=== PATIENT | male | born 1995 | race Hispanic/Latino ===

== ENCOUNTER 2017-04-15 15:33 | Day surgery (SDC) | payer OTHER ==
[2017-04-15] MEDS ORDERED: LORazepam 2 MG/ML MDV IVPUSH ONE (15:44)
[2017-04-15] MEDS ORDERED: Morphine 4 MG/ML Syringe IVPUSH ONE ×2 (15:45)
[2017-04-15] MEDS ORDERED: Ondansetron 4 MG/2 ML SDV IVPUSH ONE (15:45)
[2017-04-15] MEDS ORDERED: Sodium Chloride 0.9% 1,000 ML IV SCH (15:45)
[2017-04-15] MEDS ORDERED: LORazepam 2 MG/ML MDV ONE (15:47)
--- NOTE | 2017-04-15 16:27 | CR ---
EXAMINATION: Left forearm HISTORY: Laceration COMPARISON: None TECHNIQUE: 2 views FINDINGS/IMPRESSION: There is a subcutaneous laceration overlying the ulnar aspect of the distal for earm. Otherwise no acute osseous abnormality, dislocation, or fracture identified. No mineralization and joint spaces are otherwise normal.
[2017-04-15] MEDS ORDERED: Lidocaine 1% 20 ML MDV INJECT ONE (16:28)
[2017-04-15] MEDS ORDERED: Bupivacaine 0.25% 10 ML SDV INJECT ONE (16:28)
--- NOTE | 2017-04-15 16:29 | EDM.PDOC ---
ED HPI GENERAL MEDICAL PROBLEM - General Chief Complaint: Laceration Stated Complaint: CUT ON FOREARM Time Seen by Provider: 04/15/17 15:57 Source of Information: Reports: Patient History Limitations: Reports: No Limitations - History of Present Illness INITIAL COMMENTS - FREE TEXT/NARRATIVE: History of present illness: []Patient cut his left distal forearm with a saw with profuse bleeding 5 minutes prior to arrival. Patient complains of numbness in his ring and small finger. He denies any other injuries. Patient is up-to-date with immunizations. Review of systems: As per history of present illness and below otherwise all systems reviewed and negative. Past medical history: As per history of present illness and as reviewed below otherwise noncontributory. Surgical history: As per history of present illness and as reviewed below otherwise noncontributory. Social history: No reported history of drug or alcohol abuse. Family history: As per history of present illness and as reviewed below otherwise noncontributory. Physical exam: General: Well developed, well nourished in NAD HEENT: Atraumatic, normocephalic, pupils reactive, negative for conjunctival pallor or scleral icterus, mucous membranes moist, throat clear, neck supple, nontender, trachea midline. Lungs: Clear to auscultation, breath sounds equal bilaterally, chest nontender. Heart: S1S2, regular, negative for clicks, rubs, or JVD. Abdomen: Soft, nondistended, nontender. Negative for masses or hepatosplenomegaly. Negative for costovertebral tenderness. Pelvis: Stable nontender. Genitourinary: Deferred. Rectal: Deferred. Extremities: Left distal forearm ulnar side with a 4 cm deep laceration with active bleeding, he is able to flex and extend his ring and small finger, he has decreased sensation in the ring and small finger, there is brisk capillary refill distally. Neuro: Awake, alert, oriented. Cranial nerves II through XII unremarkable. Cerebellum unremarkable. Motor and sensory unremarkable throughout. Exam nonfocal. Diagnostics: []X-ray forearm shows no fracture or other abnormalities. Therapeutics: []Ancef, morphine, Ativan, Dilaudid, IV fluids given in the ED Impression: []Laceration left distal wrist with neurovascular compromise Plan: []Dr. Pabon was consulted after the wound was evaluated and an arterial injury and likely a nerve deficit was noted. Definitive disposition and diagnosis as appropriate pending reevaluation and review of above. Left Arm Pain Score (Numeric/FACES): 10 - Related Data Allergies Allergy/AdvReac Type Severity Reaction Status Date / Time No Known Allergies Allergy Verified 04/15/17 15:46 Home Meds: Home Meds . [No Known Home Meds] 08/21/14 [History] Past Medical History - Past Health History Medical/Surgical History: Denies Medical/Surgical History - Infectious Disease History Infectious Disease History: Reports: None Social & Family History - Family History Family Medical History: Noncontributory - Tobacco Use Smoking Status *Q: Never Smoker Years of Tobacco use: 2 Second Hand Smoke Exposure: No - Caffeine Use Caffeine Use: Reports: Soda - Alcohol Use Days Per Week of Alcohol Use: 0 - Recreational Drug Use Recreational Drug Use: No ED ROS GENERAL - Review of Systems Review Of Systems: See Below (See history of present illness) ED EXAM, SKIN/RASH Exam: See Below (See history of present illness) Course - Vital Signs Last Recorded V/S: Last Vital Signs Temp 35.7 C 04/15/17 15:41 Pulse 83 04/15/17 15:50 Resp 18 04/15/17 15:41 BP 114/89 04/15/17 15:50 Pulse Ox 98 04/15/17 15:50 - Orders/Labs/Meds Orders: Active Orders 24 hr Category Date Time Status Notify Provider Consults [RC] ASDIRECTED Care 04/15/17 16:55 Ordered Consult to Physician [CONS] Stat Cons 04/15/17 16:00 Ordered Sodium Chloride 0.9% [Normal Saline] 1,000 ml Med 04/15/17 15:45 Active IV ASDIRECTED Medication Orders Sodium Chloride (Normal Saline) 1,000 mls @ 999 mls/hr IV ASDIRECTED MAYELIN Last Admin: 04/15/17 16:29 Dose: 999 mls/hr Meds: Medications Generic Name Dose Route Start Last Admin Trade Name Freq PRN Reason Stop Dose Admin Sodium Chloride 1,000 mls @ 999 mls/hr 04/15/17 15:45 04/15/17 16:29 Normal Saline IV 999 mls/hr ASDIRECTED MAYELIN Administration Discontinued Medications Generic Name Dose Route Start Last Admin Trade Name Freq PRN Reason Stop Dose Admin Bupivacaine HCl 10 ml 04/15/17 16:28 04/15/17 16:30 Sensorcaine-Mpf 0.25% INJECT 04/15/17 16:29 10 ml ONETIME ONE Administration Fentanyl Confirm 04/15/17 16:53 Sublimaze Administered 04/15/17 16:54 Dose 250 mcg .ROUTE .STK-MED ONE Cefazolin Sodium/Dextrose 2 gm 50 mls @ 100 mls/hr 04/15/17 16:32 / Premix IV 04/15/17 17:01 ONETIME ONE Lidocaine Confirm 04/15/17 16:53 Xylocaine-Mpf 2% Administered 04/15/17 16:54 Dose 5 ml .ROUTE .STK-MED ONE Lidocaine HCl 20 ml 04/15/17 16:28 04/15/17 16:29 Xylocaine 1% INJECT 04/15/17 16:29 20 ml ONETIME ONE Administration Lorazepam 0.5 mg 04/15/17 15:44 04/15/17 16:28 Ativan IVPUSH 04/15/17 15:45 0.5 mg ONETIME ONE Administration Lorazepam Confirm 04/15/17 15:47 04/15/17 16:29 Ativan Administered 04/15/17 15:48 Not Given Dose 2 mg .ROUTE .STK-MED ONE Midazolam HCl Confirm 04/15/17 16:53 Versed 1 Mg/Ml Administered 04/15/17 16:54 Dose 2 mg .ROUTE .STK-MED ONE Morphine Sulfate 4 mg 04/15/17 15:45 04/15/17 16:28 Morphine IVPUSH 04/15/17 15:46 4 mg ONETIME ONE Administration Morphine Sulfate 4 mg 04/15/17 15:45 04/15/17 16:29 Morphine IVPUSH 04/15/17 15:46 4 mg ONETIME ONE Administration Ondansetron HCl 4 mg 04/15/17 15:45 04/15/17 16:29 Zofran IVPUSH 04/15/17 15:46 4 mg ONETIME ONE Administration Ondansetron HCl Confirm 04/15/17 16:53 Zofran Administered 04/15/17 16:54 Dose 4 mg .ROUTE .STK-MED ONE Propofol Confirm 04/15/17 16:53 Diprivan 20 Ml Administered 04/15/17 16:54 Dose 200 mg .ROUTE .STK-MED ONE Rocuronium Valatie Confirm 04/15/17 16:56 Zemuron Administered 04/15/17 16:57 Dose 50 mg .ROUTE .STK-MED ONE Succinylcholine Chloride Confirm 04/15/17 16:53 Succinylcholine In Ns Pf Administered 04/15/17 16:54 Dose 200 mg .ROUTE .STK-MED ONE Departure - Departure Time of Disposition: 17:03 Disposition: Still A Patient 30 Condition: good Clinical Impression: Laceration of forearm, left, complicated Qualifiers: Encounter type: initial encounter Qualified Code(s): S51.812A - Laceration without foreign body of left forearm, initial encounter - Discharge Information Forms: ED Department Discharge - My Orders Last 24 Hours: My Active Orders 04/15/17 15:45 Sodium Chloride 0.9% [Normal Saline] 1,000 ml IV ASDIRECTED 04/15/17 16:00 Consult to Physician [CONS] Stat 04/15/17 16:55 Notify Provider Consults [RC] ASDIRECTED - Assessment/Plan Last 24 Hours: My Active Orders 04/15/17 15:45 Sodium Chloride 0.9% [Normal Saline] 1,000 ml IV ASDIRECTED 04/15/17 16:00 Consult to Physician [CONS] Stat 04/15/17 16:55 Notify Provider Consults [RC] ASDIRECTED
[2017-04-15] MEDS ORDERED: ceFAZolin 2 GM in Premix Bag 1 BAG IV ONE (16:32)
[2017-04-15] MEDS ORDERED: Succinylcholine/Normal Saline 200 MG/10 ML Syringe ONE (16:53)
[2017-04-15] MEDS ORDERED: Lidocaine 2% 5 ML SDV ONE (16:53)
[2017-04-15] MEDS ORDERED: Ondansetron 4 MG/2 ML SDV ONE (16:53)
[2017-04-15] MEDS ORDERED: Propofol 200 MG/20 ML SDV ONE (16:53)
[2017-04-15] MEDS ORDERED: Midazolam 1 MG/ML 2 ML SDV ONE (16:53)
[2017-04-15] MEDS ORDERED: fentaNYL 250 MCG/5 ML SDV ONE (16:53)
[2017-04-15] MEDS ORDERED: Rocuronium 50 MG/5 ML Vial ONE (16:56)
--- NOTE | 2017-04-15 17:10 | PCM.PREANE ---
Preanesthetic Assessment - Anesthesia/Transfusion/Family Hx Anesthesia History: No Prior Anesthesia Family History of Anesthesia Reaction: Yes (Pt states his mother was undergoing plastic surgery in [place] and "started shaking" (sounds like a seizure) - was tx to hospital and hospitalized for a prolonged time - does not recognize "malignant hyperthermia" and states mother did not get a high fever) - Review of Systems General: No Symptoms Pulmonary: No Symptoms Cardiovascular: No Symptoms Gastrointestinal: No symptoms Neurological: No Symptoms Other: Reports: None - Physical Assessment NPO Status Date: 04/15/17 NPO Status Time: 15:30 O2 Sat by Pulse Oximetry: 98 Respiratory Rate: 18 Vital Signs: Last Vital Signs Temp 96.3 F 04/15/17 15:41 Pulse 83 04/15/17 15:50 Resp 18 04/15/17 15:41 BP 114/89 04/15/17 15:50 Pulse Ox 98 04/15/17 15:50 Height: 5 ft 6.93 in Weight: 170 lb ASA Class: 1E Mental Status: Alert & Oriented x3 Airway Class: Mallampati = 2 Dentition: Reports: Normal Dentition Thyro-Mental Finger Breadths: 4 Mouth Opening Finger Breadths: 3 ROM/Head Extension: Full Lungs: Clear to auscultation, Normal respiratory effort Cardiovascular: Regular Rate, Regular Rhythm - Allergies Allergies/Adverse Reactions: Allergies Allergy/AdvReac Type Severity Reaction Status Date / Time No Known Allergies Allergy Verified 04/15/17 15:46 - Blood Blood Available: No Product(s) Available: None - Anesthesia Plan Free Text/Narrative:: RSI GETA - discussed risk associated with full stomach - need to proceed d/t ulnar artery being cut and risk of bleeding. Pt understands and agrees to proceed. - Acknowledgements Anesthesia Type Planned: General Anesthesia Pt an Appropriate Candidate for the Planned Anesthesia: Yes Alternatives and Risks of Anesthesia Discussed w Pt/Guardian: Yes Pt/Guardian Understands and Agrees with Anesthesia Plan: Yes PreAnesthesia Questionnaire - Past Health History Medical/Surgical History: Denies Medical/Surgical History - Infectious Disease History Infectious Disease History: Reports: None - SUBSTANCE USE Smoking Status *Q: Never Smoker Second Hand Smoke Exposure: No Days Per Week of Alcohol Use: 0 Recreational Drug Use History: No - HOME MEDS Home Medications: Home Meds . [No Known Home Meds] 08/21/14 [History] - CURRENT (IN HOUSE) MEDS Current Meds: Current Medications Sodium Chloride (Normal Saline) 1,000 mls @ 999 mls/hr IV ASDIRECTED MAYELIN Last Admin: 04/15/17 16:29 Dose: 999 mls/hr Discontinued Medications Bupivacaine HCl (Sensorcaine-Mpf 0.25%) 10 ml INJECT ONETIME ONE Stop: 04/15/17 16:29 Last Admin: 04/15/17 16:30 Dose: 10 ml Fentanyl (Sublimaze) Confirm Administered Dose 250 mcg .ROUTE .STK-MED ONE Stop: 04/15/17 16:54 Cefazolin Sodium/Dextrose 2 gm (/ Premix) 50 mls @ 100 mls/hr IV ONETIME ONE Stop: 04/15/17 17:01 Lidocaine (Xylocaine-Mpf 2%) Confirm Administered Dose 5 ml .ROUTE .STK-MED ONE Stop: 04/15/17 16:54 Lidocaine HCl (Xylocaine 1%) 20 ml INJECT ONETIME ONE Stop: 04/15/17 16:29 Last Admin: 04/15/17 16:29 Dose: 20 ml Lorazepam (Ativan) 0.5 mg IVPUSH ONETIME ONE Stop: 04/15/17 15:45 Last Admin: 04/15/17 16:28 Dose: 0.5 mg Lorazepam (Ativan) Confirm Administered Dose 2 mg .ROUTE .STK-MED ONE Stop: 04/15/17 15:48 Last Admin: 04/15/17 16:29 Dose: Not Given Midazolam HCl (Versed 1 Mg/Ml) Confirm Administered Dose 2 mg .ROUTE .STK-MED ONE Stop: 04/15/17 16:54 Morphine Sulfate (Morphine) 4 mg IVPUSH ONETIME ONE Stop: 04/15/17 15:46 Last Admin: 04/15/17 16:28 Dose: 4 mg Morphine Sulfate (Morphine) 4 mg IVPUSH ONETIME ONE Stop: 04/15/17 15:46 Last Admin: 04/15/17 16:29 Dose: 4 mg Ondansetron HCl (Zofran) 4 mg IVPUSH ONETIME ONE Stop: 04/15/17 15:46 Last Admin: 04/15/17 16:29 Dose: 4 mg Ondansetron HCl (Zofran) Confirm Administered Dose 4 mg .ROUTE .STK-MED ONE Stop: 04/15/17 16:54 Propofol (Diprivan 20 Ml) Confirm Administered Dose 200 mg .ROUTE .STK-MED ONE Stop: 04/15/17 16:54 Rocuronium [place] (Zemuron) Confirm Administered Dose 50 mg .ROUTE .STK-MED ONE Stop: 04/15/17 16:57 Succinylcholine Chloride (Succinylcholine In Ns Pf) Confirm Administered Dose 200 mg .ROUTE .STK-MED ONE Stop: 04/15/17 16:54
[2017-04-15] MEDS ORDERED: Bupivacaine 0.25%/EPINEPHrine 1:200,000 10 ML SDV ONE (17:15)
[2017-04-15] MEDS ORDERED: fentaNYL 100 MCG/2 ML SDV IVPUSH PRN (19:00)
--- NOTE | 2017-04-15 19:18 | PCM.POSTAN ---
POST ANESTHESIA ASSESSMENT - MENTAL STATUS Mental Status: alert, oriented - VITAL SIGNS Pulse Rate: 74 SaO2: 98 Resp Rate: 8 Blood Pressure: 112/54 - RESPIRATORY Respiratory Status: respiratory rate WNL, airway patent, O2 saturation stable, supplemental oxygen (per NC) - CARDIOVASCULAR CV Status: pulse rate WNL, blood pressure stable - GASTROINTESTINAL GI Status: no symptoms - PAIN Pain Score: 0 (Pt sleeps between conversations - reports no pain) - POST OP HYDRATION Hydration Status: adequate & stable - OBSERVATIONS Free Text/Narrative:: Pt still pretty sleepy postop - most likely d/t earlier Ativan. VSS. Pt denies any pain or nausea. Pt can awake to voice and answers questions appropriately. Pt stable for discharge to phase II recovery when DEVELOPMENT OFFICER ready.
--- NOTE | 2017-04-15 19:19 | PCM.OPNOTE ---
- General Post-Op/Procedure Note Date of Surgery/Procedure: 04/15/17 Operative Procedure(s): repair of flexor carpi ulnaris partial tendon laceration. exploration of ulnar nerve and artery - intact. Pre Op Diagnosis: wrist laceration with bleeding Post-Op Diagnosis: Same Anesthesia Technique: General ET tube, Local Primary Surgeon: Mery Pabon Complications: None Condition: Good
[2017-04-15 22:20] VITALS: BP 109/56
--- NOTE | 2017-04-16 00:55 | PCM48HPAN ---
Post Anesthesia Note - EVALUATION WITHIN 48HRS OF ANESTHETIC Vital Signs in Normal Range: Yes Patient Participated in Evaluation: Yes Respiratory Function Stable: Yes Airway Patent: Yes Cardiovascular Function Stable: Yes Hydration Status Stable: Yes Pain Control Satisfactory: Yes Nausea and Vomiting Control Satisfactory: Yes Mental Status Recovered: Yes
--- NOTE | 2017-04-16 13:21 | PCM.CONS ---
H&P History of Present Illness - General Date of Service: 04/15/17 Admit Problem/Dx: left wrist laceration with copious bleeding Source of Information: Patient (conversation in ivorian), Family, Provider, RN History Limitations: Reports: No Limitations - History of Present Illness Initial Comments - Free Text/Narative: left wrist laceration using gold nib grinder with copious bleeding. Unable to stand exploration in the ER and thus discussed going to the OR for evaluation and repair of cut structures. He is in agreement to proceed. All questions answered and interview in Chinese. He initially told them the finger were numb but now says it is mild decrease in sensation and about 90 percent normal. Onset of Symptoms: Reports: Today, Sudden Symptom Onset Date: 04/16/17 Duration of Symptoms: Reports: Minutes: Quality: Reports: Pressure Improves with: Reports: Immobilization, Rest Worsens with: Reports: Movement Context: Denies: Trauma Associated Symptoms: Reports: No Other Symptoms Left Arm Pain Score (Numeric/FACES): 3 - Related Data Allergies/Adverse Reactions: Allergies Allergy/AdvReac Type Severity Reaction Status Date / Time No Known Allergies Allergy Verified 04/15/17 15:46 Home Medications: Home Meds . [No Known Home Meds] 08/21/14 [History] Past Medical History - Past Health History Medical/Surgical History: Denies Medical/Surgical History - Infectious Disease History Infectious Disease History: Reports: None Social & Family History - Family History Family Medical History: Noncontributory - Tobacco Use Smoking Status *Q: Never Smoker Years of Tobacco use: 2 Second Hand Smoke Exposure: No - Caffeine Use Caffeine Use: Reports: Soda - Alcohol Use Days Per Week of Alcohol Use: 0 - Recreational Drug Use Recreational Drug Use: No H&P Review of Systems - Review of Systems: Review Of Systems: See Below General: Reports: No Symptoms HEENT: Reports: No Symptoms Pulmonary: Reports: No Symptoms Musculoskeletal: Reports: Hand Pain Skin: Reports: Wound Psychiatric: Reports: Anxiety Neurological: Reports: Numbness (mild over ulnar nerve distribution) Exam - Exam Exam: See Below - Vital Signs Vital Signs: Last Vital Signs Temp 97.1 F 04/15/17 21:30 Pulse 81 04/15/17 21:30 Resp 17 04/15/17 21:30 BP 109/56 L 04/15/17 21:30 Pulse Ox 99 04/15/17 21:30 Weight: 170 lb - Exam General: Alert, Oriented, Mild Distress HEENT: EOMI Lungs: Clear to Auscultation, Normal Respiratory Effort Cardiovascular: Regular Rate, Regular Rhythm Back Exam: Normal Inspection, Full Range of Motion Extremities: Normal Pulses. No: Edema Skin: Warm, Dry, Wound (left ulnar dorsal wrist cut. It is bleeding well and angled inthe direction of the ulnar artery and nerve. unable to allow additional exploration here and thus warranted trip to the OR. ), Other (FCU function intact against resistance. ) Neuro Extensive - Mental Status: Alert, Oriented x3 Psychiatric: Alert, Anxious Consult PN Assessment/Plan Procedures: Procedures EMERGENCY DEPT VISIT (08/21/14) (1) Laceration of forearm, left, complicated SNOMED Code(s): 273776030, 637151093 Code(s): S51.812A - LACERATION WITHOUT FOREIGN BODY OF LEFT FOREARM, INIT ENCNTR Priority: Medium Qualifiers: Encounter type: initial encounter Qualified Code(s): S51.812A - Laceration without foreign body of left forearm, initial encounter Problem List Initiated/Reviewed/Updated: Yes My Orders last 24 hours: My Active Orders 04/15/17 19:17 Ready for Discharge [RC] PER UNIT ROUTINE Plan: TO OR for evaluation and repair of involved structures. Risks and benefits discussed with him in detail. He would like to proceed. Requesting Provider: ellen westbrook Date Consult Requested: 04/15/17 Reason for Consult: wrist laceration with copious bleeding Patient History Reviewed: Yes Admission H&P Reviewed: Yes Consult Result/Summary:: to OR for repair Notified Requestor: Yes Time Spent (in minutes): 45
--- NOTE | 2017-04-26 13:14 | OR ---
SURGEON: ISAIAS GODOY MD DATE OF PROCEDURE: 04/15/2017 PREOPERATIVE DIAGNOSIS: Right wrist laceration. POSTOPERATIVE DIAGNOSIS: Right wrist laceration. PROCEDURE: Repair of flexor carpi ulnaris tendon laceration and exploration of the ulnar nerve and artery. ANESTHESIA: General ET tube with local. INDICATIONS: Mr. Mccabe is a 21-year-old gentleman, who was seen in the emergency room. Due to his inability to remain still for exploration and evaluation of a bleeding wrist laceration, risks and benefits of operating intervention were discussed. He was in agreement to proceed. Risks were including, but not limited to, bleeding, infection, damage to underlying or overlying structures, possible need for future interventions and possible scarring. PROCEDURE IN DETAIL: After informed consent was obtained and placed on the chart, the patient was brought to the operating room theater and laid in the supine position. After adequate general anesthetic was obtained, the area was prepped and draped in normal fashion using a Betadine cleansing solution. Time-out was completed to confirm side and site. Attention was then paid to exploration and extension of the ulnar wrist laceration. The ulnar nerve and ulnar artery were explored and appreciated to be intact. The flexor carpi ulnaris tendon was partially lacerated and was repaired in a [id number] fashion using a 4-0 Monocryl stitch. Once adequately repaired, attention was paid to copious irrigation and closure of the skin with a 5-0 nylon in an interrupted fashion. Once adequately closed, the wound was dressed with Xeroform, fluffs, and a Kerlix gauze dressing. No splint was needed at this time. FOLLOWUP INSTRUCTIONS: This patient will see us in clinic in approximately 10 to 14 days for suture removal. He will have a 10-pound weight limit until that time. He was given prescription for pain control. HEGGTHE / MODL /[id number]
== END 2017-04-15 22:00 | disposition home or self-care (01) ==
LOC: MW.ED 15:33 → MW.SDS 16:57 → MW.MS 20:05 → MW.SDS 22:00
PROVIDERS: ATTEND Plastic Surgery
DX: S61.511A Laceration without foreign body of right wrist, initial encounter (principal); W45.8XXA Other foreign body or object entering through skin, initial encounter
CPT/HCPCS: 25260; 73090; 96361; 96365; 96375; 99285; J0690; J2060; J2250; J2270; J2405; J3010; J7040; 01810; 99284; J2704